=== PATIENT | female | born 1975 | race American Indian/Alaskan Native ===

== ENCOUNTER 2020-07-08 09:45 | Emergency (ER) | payer MEDICARE ==
--- NOTE | 2020-07-08 10:28 | Emergency Department Report ---
ED General Adult HPI - General Chief complaint: Vaginal Bleeding Stated complaint: VOMITTING/DIARHERRA/2WKS MENSTURAL CYCLE Time Seen by Provider: 07/08/20 10:13 Source: patient Mode of arrival: Ambulatory Limitations: No Limitations - History of Present Illness Initial comments: 44-year-old -Burkin[place] female presents to the emergency room complaining of shortness of breath and chest discomfort x3 days. Patient reports a decrease in appetite with nausea vomiting and diarrhea. Patient reports she does smoke half a pack per day she does not drink and occasionally smoke marijuana. Patient reports that she has a history of depression heavy menstrual cycles prediabetic and reflux. Patient states that she has been off of her Wellbutrin Abilify and trazodone for the last 6 months. Patient reports she still having bleeding of her menstrual cycle that started on June 21, 2020. She reports she she is 11 pads in the last 3 days. Patient reports that she does have a history of heavy menstrual cycles but this 1 just feels different. Patient is 5 para 3 2 abortions. Patient states a cyst on her ovary and a C- section in 1993. Onset/Timin -: days(s) - Related Data Previous Rx's Medication Instructions Recorded Last Taken Type Nitrofurantoin Loup/M-Cryst 100 mg PO Q12HR 7 Days #14 capsule 07/08/20 Unknown Rx [Macrobid CAP] amLODIPine 5 mg PO DAILY #30 tab 07/08/20 Unknown Rx hydrOXYzine HCL [Atarax] 25 mg PO BID PRN #20 tablet 07/08/20 Unknown Rx Allergies Allergy/AdvReac Type Severity Reaction Status Date / Time No Known Allergies Allergy Unverified 07/08/20 10:02 ED Review of Systems ROS: Stated complaint: VOMITTING/DIARHERRA/2WKS MENSTURAL CYCLE Other details as noted in HPI ED Past Medical Hx - Past Medical History Previous Medical History?: No Hx Psychiatric Treatment: Yes (PTSD) - Surgical History Additional Surgical History: C SECTION - Social History Smoking Status: Never Smoker Substance Use Type: Marijuana - Medications Home Medications: Home Medications Medication Instructions Recorded Confirmed Last Taken Type Nitrofurantoin Loup/M-Cryst 100 mg PO Q12HR 7 Days #14 capsule 07/08/20 Unknown Rx [Macrobid CAP] amLODIPine 5 mg PO DAILY #30 tab 07/08/20 Unknown Rx hydrOXYzine HCL [Atarax] 25 mg PO BID PRN #20 tablet 07/08/20 Unknown Rx ED Physical Exam - General Limitations: No Limitations General appearance: alert, in no apparent distress, anxious - Head Head exam: Present: atraumatic, normocephalic - Eye Eye exam: Present: normal appearance - ENT ENT exam: Present: mucous membranes moist - Respiratory Respiratory exam: Present: normal lung sounds bilaterally. Absent: accessory m uscle use - GI/Abdominal GI/Abdominal exam: Present: soft. Absent: distended - Back Exam Back exam: Present: normal inspection, full ROM - Neurological Exam Neurological exam: Present: alert, oriented X3 - Psychiatric Psychiatric exam: Present: normal affect, anxious - Skin Skin exam: Present: warm, dry, intact, normal color. Absent: rash ED Course Vital Signs 07/08/20 07/08/20 10:03 18:57 Temperature 98.0 F Pulse Rate 122 H 106 H Respiratory 20 Rate Blood Pressure 185/122 Blood Pressure 178/110 [Right] O2 Sat by Pulse 98 Oximetry ED Medical Decision Making - Lab Data Result diagrams: 07/08/20 10:36 07/08/20 10:36 Laboratory Tests 07/08/20 07/08/20 07/08/20 10:35 10:36 10:36 WBC 5.8 RBC 4.81 Hgb 14.9 H Hct 44.4 H MCV 92 MCH 31 MCHC 34 RDW 15.7 H Plt Count 465 H Lymph % (Auto) 28.8 Loup % (Auto) 7.0 Eos % (Auto) 1.0 Baso % (Auto) 0.9 Lymph # (Auto) 1.7 Loup # (Auto) 0.4 Eos # (Auto) 0.1 Baso # (Auto) 0.0 Seg Neutrophils % 62.3 Seg Neutrophils # 3.6 PT 13.7 INR 1.06 APTT 28.4 Sodium Potassium Chloride Carbon Dioxide Anion Gap BUN Creatinine Estimated GFR BUN/Creatinine Ratio Glucose Calcium Total Bilirubin AST ALT Alkaline Phosphatase Total Protein Albumin Albumin/Globulin Ratio HCG, Quant Blood Type B POSITIVE Antibody Screen Negative 07/08/20 07/08/20 10:36 10:36 WBC RBC Hgb Hct MCV MCH MCHC RDW Plt Count Lymph % (Auto) Loup % (Auto) Eos % (Auto) Baso % (Auto) Lymph # (Auto) Loup # (Auto) Eos # (Auto) Baso # (Auto) Seg Neutrophils % Seg Neutrophils # PT INR APTT Sodium 139 Potassium 3.5 L Chloride 101.5 Carbon Dioxide 25 Anion Gap 16 BUN 7 Creatinine 0.9 Estimated GFR > 60 BUN/Creatinine Ratio 8 Glucose 145 H Calcium 10.2 Total Bilirubin 0.20 AST 40 ALT 57 H Alkaline Phosphatase 77 Total Protein 7.9 Albumin 4.6 Albumin/Globulin Ratio 1.4 HCG, Quant < 2 Blood Type Antibody Screen - Radiology Data Radiology results: report reviewed Patient: GALO RODRIGEZ MR#: [id number] : 1975 Acct:[id number] Age/Sex: 44 / F ADM Date: 07/08/20 Loc: ED Attending Dr: Ordering Physician: CORINNE SZYMANSKI Date of Service: 07/08/20 Procedure(s): XR chest routine 2V Accession Number(s): [id number] cc: CORINNE SZYMANSKI Fluoro Time In Minutes: XR chest routine 2V INDICATION / CLINICAL INFORMATION: SOB. COMPARISON: None available. FINDINGS: SUPPORT DEVICES: None. HEART /PULMONARY VASCULATURE: No significant abnormality. LUNGS / PLEURA: No significant pulmonary or pleural abnormality. No pneumothorax . ADDITIONAL FINDINGS: No significant additional findings. IMPRESSION: 1. No acute findings. Signer Name: Alesia Ren MD Signed: 07/08/2020 11:56 AM Workstation Name: [id number] Transcribed By: JS Dictated By: ALESIA REN MD Electronically Authenticated By: ALESIA REN MD Signed Date/Time: 07/08/20 115 DD/ 1156 TD/TT: - Medical Decision Making 44-year-old -[place] female presents to the emergency room complaining of shortness of breath and chest discomfort x3 days. Patient reports a decrease in appetite with nausea vomiting and diarrhea. Patient reports she does smoke half a pack per day she does not drink and occasionally smoke marijuana. Patient reports that she has a history of depression heavy menstrual cycles prediabetic and reflux. Patient states that she has been off of her Wellbutrin Abilify and trazodone for the last 6 months. Patient reports she still having bleeding of her menstrual cycle that started on June 21, 2020. She reports she she is 11 pads in the last 3 days. Patient reports that she does have a history of heavy menstrual cycles but this 1 just feels different. Patient is 5 para 3 2 abortions. Patient states a cyst on her ovary and a in 1993. Critical care attestation.: If time is entered above; I have spent that time in minutes in the direct care of this critically ill patient, excluding procedure time. ED Disposition Clinical Impression: Anxiety, UTI (urinary tract infection), Hypertension Disposition: TO HOME OR SELFCARE Is pt being admited?: No Does the pt Need Aspirin: No Condition: Stable Instructions: Urinary Tract Infection, Adult, Hypertension, Adult, [id number], Managing Anxiety, Adult, Hypertension (ED) Additional Instructions: Please complete your antibiotics as prescribed. Take antianxiety medication and hypertension medicine. Is very important that you follow-up within primary care provider or [employer] provider and a mental health provider. Prescriptions: amLODIPine 5 mg PO DAILY #30 tab hydrOXYzine HCL [Atarax] 25 mg PO BID PRN #20 tablet PRN Reason: Anxiety Nitrofurantoin Loup/M-Cryst [Macrobid CAP] 100 mg PO Q12HR 7 Days #14 capsule Referrals: [facility]IMARY [facility] [Primary Care Provider] - 3-5 Days [facility] [Provider Group] - [facility]
[2020-07-08 10:52] LABS: Basophils % (Auto) 0.9 % (0.0-1.8); Eosinophils # (Auto) 0.1 K/mm3 (0.0-0.4); Hematocrit 44.4 % (30.3-42.9); Hemoglobin 14.9 gm/dl (10.1-14.3); Lymphocytes # (Auto) 1.7 K/mm3 (1.2-5.4); Lymphocytes % (Auto) 28.8 % (13.4-35.0); Mean Corpuscular HGB Conc 34 % (30-34); Mean Corpuscular Volume 92 fl (79-97); Monocytes # (Auto) 0.4 K/mm3 (0.0-0.8); Platelet Count 465 K/mm3 (140-440); Red Blood Count 4.81 M/mm3 (3.65-5.03); Red Cell Distribution Width 15.7 % (13.2-15.2)
[2020-07-08 11:10] LABS: Alanine Aminotransferase 57 units/L (7-56); Albumin 4.6 g/dL (3.9-5); BUN/Creatinine Ratio 8; Blood Urea Nitrogen 7 mg/dL (7-17); Calcium 10.2 mg/dL (8.4-10.2); Hemolysis Index 7
[2020-07-08 11:26] LABS: INR 1.06 (0.87-1.13)
[2020-07-08 11:27] LABS: Partial Thromboplastin Time 28.4 Sec. (24.2-36.6)
--- NOTE | 2020-07-08 12:00 | XRay Report ---
XR chest routine 2V INDICATION / CLINICAL INFORMATION: SOB. COMPARISON: None available. FINDINGS: SUPPORT DEVICES: None. HEART /PULMONARY VASCULATURE: No significant abnormality. LUNGS / PLEURA: No significant pulmonary or pleural abnormality. No pneumothorax. ADDITIONAL FINDINGS: No significant additional findings. IMPRESSION: 1. No acute findings. Signer Name: Mayito Ren MD Signed: 07/08/2020 11:56 AM Workstation Name: [id number]
[2020-07-08 17:01] LABS: Bacteria,Urine 1+ /HPF (Negative); Bilirubin,Urine NEG (Negative); Blood,Urine LG (Negative); Color,Urine Amber (Yellow); Hyaline Casts,Urine 23 /LPF; Mucus,Urine 2+ /HPF; Urobilinogen,Urine < 2.0 mg/dL (<2.0)
[2020-07-08 18:58] VITALS: BP 178/110
== END 2020-07-08 18:58 | disposition home or self-care (01) ==
LOC: ED 09:45
DX: N39.0 Urinary tract infection, site not specified (principal); F41.9 Anxiety disorder, unspecified; I10 Essential (primary) hypertension; F12.10 Cannabis abuse, uncomplicated; Z98.890 Other specified postprocedural states; Z79.899 Other long term (current) drug therapy
CPT/HCPCS: 36415; 71046; 80053; 81001; 84702; 85025; 85610; 85730; 86850; 86900; 86901; 87086